=== PATIENT | female | born 1990 | race Asian ===

== ENCOUNTER 2019-08-26 09:20 | Outpatient (CLI) | payer OTHER, SELFPAY ==
--- NOTE | ~2019-08-26 | XR_ITS ---
XR cervical spine 4-5V DATE: 08/26/2019 09:52 INDICATION: Bilateral upper extremity paresthesias TECHNIQUE: Lateral, swimmer's, AP and open-mouth views COMPARISON: None FINDINGS: There is reversal of cervical curvature. There is minimal dextroscoliosis of the cervical s pine. There is levoscoliosis of the upper thoracic spine. There is minimal anterolisthesis at C4-5. C1 and C2 are normally aligned and the odontoid process is intact. No fracture or dislocation or lock ed facet or prevertebral soft tissue swelling. The cervical interspaces are well preserved. IMPRESSION: Reversal of cervical curvature Minimal dextroscoliosis Minimal anterolisthesis at C4-5 Reviewed, dictated and finalized at location A.
[2019-08-26 09:51] LABS: Hematocrit 38.1 % (37.0-47.0); Hemoglobin 12.1 g/dL (12.0-15.0); Mean Corpuscular HGB Conc 31.8 g/dl (32-36); Mean Corpuscular Hemoglobin 26.4 pg (26-34); Mean Corpuscular Volume 83.2 fl (80-100); Mean Platelet Volume 13.7 fl (7.4-10.4); Platelet Count Result 184 k/mm3 (150-375); Red Blood Count 4.58 M/mm3 (4.2-5.4); Red Cell Distribution Width 14.8 % (11.5-14.5); White Blood Count 6.1 K/mm3 (4.5-10.0)
[2019-08-26 09:59] LABS: Hemoglobin A1C 5.7 % (<5.7)
[2019-08-26 10:02] LABS: Cholesterol 163 mg/dL (0-200); HDL Direct 56 mg/dL; Triglycerides 47 mg/dL (<150)
[2019-08-26 10:13] LABS: LDL Cholesterol Direct 72 mg/dL
[2019-08-26 10:41] LABS: Free T4 Free Thyroxine 0.86 ng/mL (0.78-2.19)
[2019-08-26 10:46] LABS: Creatinine Urine 47.9 mg/dL
[2019-08-26 10:50] LABS: MALB Creatinine Ratio 18.2 mg/g (0-30); Microalbumin Urine Random 8.7 mg/L (0-16.7)
[2019-08-26 11:13] LABS: Folic Acid 13.8 ng/mL (2.76->20)
== END 2019-08-26 09:21 | disposition home or self-care (01) ==
PROVIDERS: PCP Emergency Medicine; Visit Provider Emergency Medicine
DX: R20.2 Paresthesia of skin (principal); M53.82 Other specified dorsopathies, cervical region; M41.82 Other forms of scoliosis, cervical region; M43.12 Spondylolisthesis, cervical region
CPT/HCPCS: 36415; 72050; 80061; 82043; 82607; 82746; 83036; 84439; 84443; 85027; 85055